=== PATIENT | male | born 1945 | race Caucasian/White ===

== ENCOUNTER → 2024-06-16 10:24 | Outpatient (REF) | payer OTHER, SELFPAY ==
[2024-06-16 11:14] LABS: Body Fluid Mononuclear 39.4 %; Body Fluid Polymorphonuclear 60.6 %; Body Fluid WBC 637 /CUMM
[2024-06-16 11:43] LABS: Body Fluid Second Tech AMA
== END ==
LOC: OLAB 10:24
PROVIDERS: ATTENDING PHYSICIAN Physician Assistant Surgical; PRIMARYCARE PHYSICIAN Internal Medicine
DX: M25.562 Pain in left knee (principal)
CPT/HCPCS: 36415; 89051; 89060